=== PATIENT | male | born 1980 | race Caucasian/White ===

== ENCOUNTER 2016-12-18 21:43 | Emergency (ER) | payer OTHER ==
[~2016-12-18] VITALS: Ht 172.7 cm; Wt 69.5 kg
[2016-12-18 21:52] VITALS: Ht 172.7 cm; Wt 69.5 kg
[2016-12-18] MEDS ORDERED: IBUP-1542 PO (22:16)
[2016-12-18] MEDS ORDERED: HYDR-906 PO (22:16)
[2016-12-18] MEDS ORDERED: CYCL-319 PO (22:16)
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
== END 2016-12-18 22:49 | disposition home or self-care (01) ==
LOC: FTE 21:43
DX: S16.1XXA Strain of muscle, fascia and tendon at neck level, initial encounter (principal); S39.012A Strain of muscle, fascia and tendon of lower back, initial encounter; V49.50XA Passenger injured in collision with unspecified motor vehicles in traffic accident, initial encounter
CPT/HCPCS: 99284